=== PATIENT | male | born 1955 | race Caucasian/White ===

== ENCOUNTER 2017-11-02 17:34 | Emergency (ER) | payer MEDICAID ==
[~2017-11-02] VITALS: Ht 170.2 cm; Wt 68.2 kg
[2017-11-02 17:52] LABS: GLUCOSE,POINT OF CARE 140 MG/DL (70-110)
[2017-11-02] MEDS ORDERED: NIFE30TA5 PO (18:00)
[2017-11-02] MEDS ORDERED: CARV6 PO (18:00)
[2017-11-02] MEDS ORDERED: B CO1TAB7 PO (18:00)
[2017-11-02] MEDS ORDERED: OMEP20 PO (18:00)
[2017-11-02] MEDS ORDERED: PRAV10TA39 PO (18:00)
[2017-11-02] MEDS ORDERED: FURO80 PO (18:00)
[2017-11-02] MEDS ORDERED: LEVO25TA9 PO (18:00)
[2017-11-02] MEDS ORDERED: HYDROCODONE/ACETAMINOPHEN 5-325 MG TABLET PO ONE (19:30)
[2017-11-02 19:36] LABS: EOSINOPHILS % (AUTO) 1.1 % (1.0-6.0); HEMATOCRIT 29.3 % (41-53); HEMOGLOBIN 9.5 g/dL (13.5-17.5); LYMPHOCYTES # (AUTO) 0.9 K/uL (1.0-4.8); LYMPHOCYTES % (AUTO) 7.8 % (22.0-44.0); MEAN CORPUSCULAR HEMOGLOBIN 23.9 pg (26.0-34.0); MEAN CORPUSCULAR HGB CONC 32.4 G/dL (31.0-37.0); MEAN CORPUSCULAR VOLUME 74 fL (80-100); MONOCYTES # (AUTO) 1.1 K/uL (0.1-1.0); MONOCYTES % (AUTO) 9.6 % (2.0-9.0); NEUTROPHILS # (AUTO) 9.6 K/uL (1.8-7.7); NEUTROPHILS % (AUTO) 80.5 % (40.0-70.0); PLATELET COUNT (AUTO) 492 K/uL (150-450); RED BLOOD CELL COUNT(AUTO) 3.98 MIL/uL (4.50-5.90); RED CELL DISTRIBUTION WIDTH 16.5 % (11.5-14.5)
[2017-11-02 19:47] LABS: CALCIUM, TOTAL 9.3 mg/dL (8.8-10.5); CREATININE 5.36 mg/dL (0.60-1.30); POTASSIUM 3.3 mmol/L (3.5-5.1)
[2017-11-02 19:54] LABS: BILIRUBIN,TOTAL 0.4 mg/dL (0.1-1.0)
[2017-11-02 20:58] VITALS: BP 164/79
== END 2017-11-02 21:09 | disposition home or self-care (01) ==
LOC: EMS 17:36
DX: K59.00 Constipation, unspecified (principal); I12.0 Hypertensive chronic kidney disease with stage 5 chronic kidney disease or end stage renal disease; E11.22 Type 2 diabetes mellitus with diabetic chronic kidney disease; N18.6 End stage renal disease; Z99.2 Dependence on renal dialysis; Z88.8 Allergy status to other drugs, medicaments and biological substances
CPT/HCPCS: 74022; 82962; 99285